=== PATIENT | male | born 1940 | race Caucasian/White ===

== ENCOUNTER 2016-11-14 09:10 | Outpatient (CLI) | payer OTHER ==
[2015-12-29 15:03] VITALS: BP 132/79
[2016-11-14 09:25] LABS: BASOPHILS % 0.6 (0.0-1.5); EOSINOPHILS % 1.1 % (0.0-6.8); MEAN CORPUSCULAR HEMOGLOBIN 29.6 pg (28.0-34.0); MEAN CORPUSCULAR VOLUME 89.8 fl (80.0-100.0); MONOCYTES % 4.5 % (0.0-11.0); NEUTROPHILS # 5.8 # k/uL (1.4-7.7)
[2016-11-14 09:55] LABS: eGFR (African) > 60; eGFR (Non-African) > 60
== END 2016-11-14 09:11 ==
LOC: LAB 09:10
PROVIDERS: ATTEND Family Medicine
DX: E11.9 Type 2 diabetes mellitus without complications (principal); I10 Essential (primary) hypertension; E78.00 Pure hypercholesterolemia, unspecified
CPT/HCPCS: 36415; 80053; 80061; 83036; 85025

== ENCOUNTER 2017-09-06 11:25 | Outpatient (CLI) | payer OTHER ==
[2015-12-29 15:03] VITALS: BP 132/79
== END 2017-09-06 11:26 ==
LOC: LAB 11:25
PROVIDERS: ATTEND Family Medicine
DX: E11.9 Type 2 diabetes mellitus without complications (principal); E78.00 Pure hypercholesterolemia, unspecified
CPT/HCPCS: 36415; 80061; 83036

== ENCOUNTER 2018-07-09 10:18 | Outpatient (CLI) | payer OTHER ==
[2015-12-29 15:03] VITALS: BP 132/79
[2018-07-09 10:51] LABS: MEAN CORPUSCULAR HEMOGLOBIN 28.3 pg (28.0-34.0)
[2018-07-09 10:52] LABS: BASOPHILS % 0.5 (0.0-1.5); EOSINOPHILS % 1.2 % (0.0-6.8); MONOCYTES % 5.8 % (0.0-11.0); NEUTROPHILS # 6.4 # k/uL (1.4-7.7)
[2018-07-09 11:29] LABS: eGFR (Non-African) > 60
== END 2018-07-09 10:20 ==
LOC: LAB 10:18
PROVIDERS: ATTEND Orthopaedic Surgery Adult Reconstructive Orthopaedic Surgery
DX: Z01.818 Encounter for other preprocedural examination (principal); E11.9 Type 2 diabetes mellitus without complications
CPT/HCPCS: 36415; 80053; 83036; 85025

== ENCOUNTER 2019-03-17 19:11 | Emergency (ER) | payer OTHER ==
--- NOTE | 2019-03-17 19:21 | ED Physician Documentation ---
Chest Pain - HISTORIAN Historian: patient - HPI Stated Complaint: chest pain Chief Complaint: Chest Pain Onset: days ago (3) Duration: waxing, waning Last known Well Date: 03/15/19 Last Known Well Time: 07:00 Context: activity Severity: moderate Quality: burning, aching Chest Pain Radiation: epigastric Chest Pain Signs/Symptoms: denies: nausea, vomiting, diaphoresis, hypotension, palpitations, weakness Relieved By: sitting up Further Comments: yes (HE states he has had a ulcer in the past and he feels that the pain is the same. He states the pain started yesterday and he went to bed and states he woke feeling good. He states he then felt the pain starting about 2 pm "some pain" he cant quite describe the pain and states he thought he would take OTC meds for indegestgion but did not go into the store. He came home and tried a nap and when he woke he had increased pain. He states burning and he reports the pain was mid chest and now has moved to his upper abdomen area. Denies any sweating or nausea or other moving pain. No cough, fever or recent illness.) - ROS CONST: none MS/LYMPH: none GI/: abdominal pain EYES/ENT: none SKIN/ENDO: none NEURO/PSYCH: none - PAST HX SC risk factors: hypertension Neuro deficit: none GI disease: peptic ulcer Lung disease: none Surgeries/Procedures: other (renal stent ) Immunizations: UTD Allergies/Adverse Reactions: Allergies Allergy/AdvReac Type Severity Reaction Status Date / Time No Known Drug Allergies Allergy Verified 03/17/19 19:41 - SOCIAL HX Smoking History: cigarettes Alcohol Use: none Drug Use: none - FAMILY HX Family HX: none - VITAL SIGNS Vital Signs: Vital Signs Temp Pulse Resp BP Pulse Ox 132/79 12/29/15 15:00 - REVIEWED ASSESSMENTS Nursing Assessment Reviewed: Yes Vitals Reviewed: Yes Progress - Progress Progress: 1999: states pain is some better - denies any chest pain states his pain is lower abdomen but is "a little" DG 2029: resting quietly in room DG 2129 :Discussed results with family and he would like transfer to [place] DG 2130: called [facility] - she will discuss with provider and return call DG 2139: states he will actually take something for pain 09/12 DG 2150: discussed case with Dr Bennett he is agreeable to accept transfer of pt to [facility] [place] DG 2217: discussed fever with [facility] Chest Pain Physical Exam - EXAM General Appearance: no acute distress, alert EENT: eye inspection normal, ENT inspection normal, pharynx normal, no signs of dehydration Neck: nml inspection Respiratory: no resp. distress, chest non-tender, nml breath sounds CVS: reg. rate & rhythm, irregularly irreg. rhythm, other (rate changed to regular ) Abdomen: soft, tenderness (epigastric area with palpation ) Skin: warm/dry, normal color Extremities: non-tender, normal range of motion, no evidence of injury Neuro: oriented X3 Discharge Clincal Impression: Cholelithiasis Qualifiers: Cholelithiasis location: gallbladder Cholecystitis presence: without cholecystitis Biliary obstruction: without biliary obstruction Qualified Code(s): K80.20 - Calculus of gallbladder without cholecystitis without obstruction Referrals: Addy Lyn MD [Primary Care Provider] - 2 Days Comments: Transfer to Dr Bennett [facility] Condition: Fair Disposition: 02 XFER SHT-TRM HOSP Decision to Admit: NO Date of Decison to Admit: 03/17/19 Decision Time: 22:03
[2019-03-17 19:26] LABS: BASOPHILS % 0.5 % (0.0-1.5); NEUTROPHILS # 13.9 # k/uL (1.4-7.7)
[2019-03-17 19:41] LABS: eGFR (Non-African) > 60
[2019-03-17] MEDS: 0.9 % SODIUM CHLORIDE 1,000 ML IV ONE ×2 (19:45→22:25)
[2019-03-17] MEDS: ASPIRIN 81 MG CHEW TAB PO ONE (19:45)
[2019-03-17] MEDS: MAG HYDROX/ALUMINUM HYD/SIMETH 30 ML, Lidocaine 2% Viscous 15 ML PO ONE ×2 (19:50)
[2019-03-17] MEDS: fentaNYL CITRATE/PF 100 MCG/2 ML INJ. IVP ONE (21:53)
[2019-03-17] MEDS: KETOROLAC TROMETHAMINE 30 MG/1ML VIAL IV ONE (22:24)
[2019-03-17 23:21] VITALS: BP 179/101
[2019-03-18 06:18] LABS: APPEARANCE,URINE CLEAR (CLEAR); COLOR,URINE YELLOW (YELLOW); OCCULT BLOOD,URINE 1+ (NEGATIVE); PH URINE 8.5 (5.0 - 8.0); UROBILINOGEN URINE 0.2 Eu (0.2-1.0)
== END 2019-03-17 22:35 | disposition short-term general hospital (02) ==
LOC: ED 19:11
DX: K80.20 Calculus of gallbladder without cholecystitis without obstruction (principal)
CPT/HCPCS: 71045; 74177; 80053; 81002; 84484; 85025; 93005; 96361; 96374; 99283; 99284; J1885; J3010; A9270-GY; J7030; Q9967; S1016

== ENCOUNTER 2019-04-15 10:56 | Outpatient (CLI) | payer OTHER ==
[2019-04-15 11:21] LABS: BASOPHILS % 0.4 % (0.0-1.5); NEUTROPHILS # 5.6 # k/uL (1.4-7.7)
[2019-04-15 11:35] LABS: A1C 7.1 % (<5.7)
[2019-04-15 11:58] LABS: HDL 43 mg/dL (>40); eGFR (Non-African) > 60
== END 2019-04-15 11:01 ==
LOC: LAB 10:56
PROVIDERS: ATTEND Family Medicine
DX: I10 Essential (primary) hypertension (principal); E11.9 Type 2 diabetes mellitus without complications; E78.00 Pure hypercholesterolemia, unspecified
CPT/HCPCS: 36415; 80053; 80061; 83036; 85025